=== PATIENT | male | born 1975 | race African-American/Black ===

== ENCOUNTER 2017-05-30 10:00 | Emergency (ER) | payer OTHER ==
[~2017-05-30] VITALS: Ht 172.7 cm; Wt 102.1 kg
--- NOTE | 2017-05-30 10:00 | NUR ---
BB SELF FROM HOME FOR LEFT SHOULDER DISLOCATION THIS AM. NAD NOTED. PT AAOX4, AMB WITH STEADY GAIT. RR EVEN AND UNLABORED. VSS. DR BUSH AT BEDSIDE FOR EVAL.
[2017-05-30] MEDS ORDERED: MORPHINE SULFATE INJ 4 MG/ML DISP.SYRIN ONE (10:22)
[2017-05-30] MEDS ORDERED: PROPOFOL 20 ML IV ONE (10:22)
[2017-05-30] MEDS ORDERED: ONDANSETRON HCL/PF 4 MG/2 ML VIAL ONE (10:22)
[2017-05-30] MEDS ORDERED: ONDANSETRON HCL/PF - ER 4 MG/2 ML VIAL IV ONE (10:30)
[2017-05-30] MEDS ORDERED: PROPOFOL 200 MG/20 ML VIAL IV ONE (10:30)
[2017-05-30] MEDS ORDERED: MORPHINE SULFATE INJ 2 MG/ML DISP.SYRIN IV ONE (10:30)
--- NOTE | 2017-05-30 10:42 | NUR ---
max alcantar [phone]
--- NOTE | 2017-05-30 10:58 | NUR ---
REDUCTION COMPLETED BY DR BUSH. NAD NOTED. XRAY AT BEDSIDE
--- NOTE | 2017-05-30 11:02 | NUR ---
RT NOTE: RT STANDBY FOR PROCEDURE. NO ADVERSE REACTIONS. PATIENT IS NOW ALERT WITH [id number]% ON 4LPM NASAL CANNULA.
[2017-05-30 11:24] VITALS: BP 138/68
--- NOTE | 2017-05-30 11:31 | NUR ---
PT DISCHARGED HOME WITH STABLE CONDITION. VSS. PT AMB WITH STEADY GAIT. RR EVEN AND UNLABORED. VSS. NO FURTHER COMPLAINTS. PRESCRIPTIONS GIVEN.
== END 2017-05-30 11:27 | disposition home or self-care (01) ==
LOC: ER 10:03
DX: S43.015A Anterior dislocation of left humerus, initial encounter (principal); W22.8XXA Striking against or struck by other objects, initial encounter; Y93.89 Activity, other specified; Y92.008 Other place in unspecified non-institutional (private) residence as the place of occurrence of the external cause; Y99.8 Other external cause status
CPT/HCPCS: 73020; 73030-TC; A4606; J2270; J2405; J2704; Z7610